=== PATIENT | male | born 1995 | race Caucasian/White ===

== ENCOUNTER 2018-12-25 11:28 | Emergency (ER) | payer MEDICAID ==
[2018-12-25] MEDS: TETRACAINE 0.5% 4 ML OPH LEFT EYE (13:12)
== END 2018-12-25 14:19 | disposition home or self-care (01) ==
LOC: FTE 11:28
DX: H57.12 Ocular pain, left eye (principal); H57.89 Other specified disorders of eye and adnexa
CPT/HCPCS: 76536; 99284-25